=== PATIENT | male | born 1995 | race Caucasian/White ===

== ENCOUNTER 2022-11-02 00:30 | Emergency (ER) | payer OTHER ==
[~2022-11-02] VITALS: Ht 185.4 cm; Wt 94.3 kg
[2022-11-02 01:34] VITALS: BP 146/79; TEMP 98.5; O2SAT 100
[2022-11-02] MEDS ORDERED: IBUP-1953 PO (01:41)
[2022-11-02] MEDS ORDERED: IBUPROFEN 600 MG TABLET ONE (01:42)
[2022-11-02] MEDS: IBUPROFEN 600 MG TABLET PO ONE (01:43)
== END 2022-11-02 01:46 | disposition home or self-care (01) ==
LOC: ER 00:39
DX: K08.89 Other specified disorders of teeth and supporting structures (principal); Z60.2 Problems related to living alone